=== PATIENT | male | born 1995 | race Caucasian/White ===

== ENCOUNTER → 2017-07-21 | Outpatient (CLI) | payer BC | LOC: FIMAGING 07:31 | PROVIDERS: ATTEND Family Medicine | DX: I86.1 Scrotal varices (principal) ==

== ENCOUNTER → 2017-09-23 | Outpatient (CLI) | payer BC | LOC: FIMAGING 10:44 | PROVIDERS: ATTEND Specialist | DX: I86.1 Scrotal varices (principal) ==